=== PATIENT | male | born 2000 | race Caucasian/White ===

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

== ENCOUNTER → 2019-10-10 | Outpatient (CLI) | payer OTHER ==
[~2019-10-10] MED LIST changes: +KLOR-CON M2020 ME1 PO
[2019-10-10 12:20] LABS: BASO # 0.1 10*3/uL (0.0-0.1); BASO % 0.8 % (0.0-1.0); EOS # 0.3 10*3/uL (0.0-0.4); EOS % 3.5 % (1.0-4.0); HEMATOCRIT 46.2 % (42.0-52.0); LYMPH % 40.8 % (27.0-41.0); MEAN CELL VOLUME 89.5 fl (80.0-94.0); MEAN CORPUSCULAR HGB 29.1 pg (27.0-31.0); MEAN CORPUSCULAR HGB CONC 32.5 g/dl (33.0-37.0); MEAN PLATELET VOLUME 10.4 fl (9.6-12.3); MONO # 0.6 10*3/uL (0.1-1.0); MONO % 8.2 % (3.0-9.0); NEUT # 3.4 10*3/uL (2.3-7.9); NEUT % 46.6 % (47.0-73.0); PLATELET COUNT AUTOMATED 282 10*3/uL (130-400); RED BLOOD COUNT 5.16 10*6/uL (4.50-5.90); RED CELL DISTRI WIDTH 12.9 % (0-14.5); WHITE BLOOD COUNT 7.4 10*3/uL (4.8-10.8)
[2019-10-10 12:36] LABS: ALBUMIN 3.8 gm/dl (3.1-4.5); ALKALINE PHOSPHATASE 38 U/L (45-117); BUN 10 mg/dl (7-24); CHLORIDE 107 mmol/L (98-107); CHOLESTEROL 143 mg/dL (<200); CPK 203 U/L (39-308); HDL CHOLESTEROL 47 mg/dl (40-60); LDL CHOLESTEROL 79 mg/dL (9-159); POTASSIUM 4.1 mmol/L (3.5-5.1); SGOT/AST 24 IU/L (3-35); SGPT/ALT 45 U/L (12-78); SODIUM 140 mmol/L (136-145); T3 UPTAKE 33 % (31-39); TOTAL PROTEIN 7.4 gm/dL (6.4-8.2); TRIGLYCERIDES 83 mg/dl (<150); VLDL CHOLESTEROL 17 mg/dL (6-40)
== END | disposition home or self-care (01) ==
LOC: LAB 11:34
PROVIDERS: Pediatrics
DX: I10 Essential (primary) hypertension (principal)

== ENCOUNTER 2021-05-17 13:49 | Emergency (ER) | payer OTHER ==
[~2021-05-17] VITALS: Ht 180.3 cm; Wt 117.9 kg
[2021-05-17] MEDS ORDERED: PROVENTIL HFA6.7 GM INH (16:17)
[2021-05-17] MEDS ORDERED: PREDNISONE20 M1 PO (16:17)
== END 2021-05-17 16:45 | disposition home or self-care (01) ==
LOC: ED 13:49
DX: J02.9 Acute pharyngitis, unspecified (principal); Z20.822 Contact with and (suspected) exposure to COVID-19

== ENCOUNTER 2023-07-15 13:53 | Emergency (ER) | payer OTHER ==
[~2023-07-15] VITALS: Ht 185.4 cm; Wt 120.2 kg
[~2023-07-15 13:53] MED LIST changes: +PREDNISONE20 M1 PO; +PROVENTIL HFA6.7 GM INH
[2023-07-15] MEDS ORDERED: IBUPROFEN600 MG PO (14:49)
[2023-07-15] MEDS ORDERED: CEPHALEXIN500 M1 PO (14:49)
== END 2023-07-15 14:49 | disposition home or self-care (01) ==
LOC: ED 13:53
DX: L60.0 Ingrowing nail (principal); Z79.899 Other long term (current) drug therapy